=== PATIENT | male | born 1990 | race Caucasian/White ===

== ENCOUNTER 2017-03-01 20:38 | Emergency (ER) | payer BC, OTHER ==
[~2017-03-01] VITALS: Ht 188 cm; Wt 87.2 kg
[2017-03-01 20:44] VITALS: BP 118/79
[2017-03-01] MEDS ORDERED: DIPH,PERTUSS(ACELL),TET VAC/PF 0.5 ML IM-VACC ONE ×3 (21:30→21:37)
[2017-03-01] MEDS ORDERED: LIDOCAINE 1%, 20ML SQ ONE (21:30)
[2017-03-01] MEDS ORDERED: BACITRACIN ZINC OINT 500U/GM, 0.9 GM ONE (21:35)
[2017-03-01] MEDS ORDERED: LIDOCAINE 1%, 20ML ONE (21:52)
== END 2017-03-01 22:29 | disposition home or self-care (01) ==
LOC: ED 22:23
DX: S81.012A Laceration without foreign body, left knee, initial encounter (principal); Z23 Encounter for immunization; V19.9XXA Pedal cyclist (driver) (passenger) injured in unspecified traffic accident, initial encounter; Y93.55 Activity, bike riding; Y99.8 Other external cause status; Y92.410 Unspecified street and highway as the place of occurrence of the external cause
CPT/HCPCS: 12001; 90471; 90715